=== PATIENT | male | born 1980 | race Caucasian/White ===

== ENCOUNTER 2021-03-02 07:34 | Day surgery (SDC) | payer OTHER ==
[~2021-03-02] VITALS: Ht 175.3 cm; Wt 96.7 kg
[~2021-03-02 07:34] MED LIST: CETI5 PO
--- NOTE | 2021-03-02 11:21 | NUR ---
REPORT RECIEVED FROM SAEID DARNELL RN. PT AWAKE AND ORIENTED THROUGHOUT RECOVERY. DRESSING REMAINS CDI. ABDOMINAL BINDER IN PLACE. PT RECEIVED ONE PAIN PILL. CALLED FOR RIDE HOME. ALL BELONINGS RETURNED TO PATIENT. Patient up to Ambulate independently. Gait steady. Dressing to procedure site clean, dry, intact with no visible drainage, swelling, erythema or bruising noted. Patient States Post-Procedure ride home has been arranged. Discharged via wheelchair to private car for ride home. Discharge instructions reviewed with patient. Patient verbalizes understanding. Copy given to patient to take home.
--- NOTE | 2021-03-06 07:31 | NUR ---
03/06/21 0731 Emerita Nathan VERIFICATIONS: EDIT CHART.
== END 2021-03-02 11:26 | disposition home or self-care (01) ==
LOC: ORSCMMR 07:34 → ORD 09:00 → ORSCMMR 11:26
PROVIDERS: Surgery
PROC: 0WUF0JZ Supplement Abdominal Wall with Synthetic Substitute, Open Approach (ICD-10-PCS; principal; 2021-03-02 09:00)
DX: K42.9 Umbilical hernia without obstruction or gangrene (principal); E66.01 Morbid (severe) obesity due to excess calories; Z68.37 Body mass index [BMI] 37.0-37.9, adult
CPT/HCPCS: A9270; C1781; J0690; J1100; J2250; J2405; J2704; J3010; J7120